=== PATIENT | female | born 1975 | race Native Hawaiian/Other Pacific Islander ===

== ENCOUNTER 2019-06-05 14:08 | Emergency (ER) | payer SELFPAY ==
[2019-06-05] MEDS ORDERED: HYDROcodone/ACETAMINOPHEN 5-325 MG TAB PO ONE (15:24)
--- NOTE | 2019-06-05 15:26 | Emergency Department Report ---
Chief Complaint: Abdominal Pain Stated Complaint: ABD PAIN Time Seen by Provider: 06/05/19 15:23 - HPI History of Present Illness: the pt is a 43 y/o F p/w a cc of left flank pain and LAP. Pt developed left back/flank pain 2 days ago and yd developed LAP bilat. No n/v, hematuria or dysuria. Pt uncertain if she's had a fever. Pt gives pain a score of 10/10 - Exam Vital Signs: Vital Signs 06/05/19 14:14 Temperature 98 F Pulse Rate 87 Respiratory 20 Rate Blood Pressure 105/57 O2 Sat by Pulse 97 Oximetry MSE screening note: Focused history and physical exam performed. Due to findings the following was ordered: cbc, cmp, u/a, upt, lipase ED Disposition for MSE Condition: Stable Instructions: Abdominal Pain (ED)
[2019-06-05 15:54] LABS: Basophils # (Auto) 0.1 K/mm3 (0.0-0.1); Basophils % (Auto) 0.5 % (0.0-1.8); Eosinophils # (Auto) 0.3 K/mm3 (0.0-0.4); Eosinophils % (Auto) 2.2 % (0.0-4.3); Hematocrit 42.3 % (30.3-42.9); Hemoglobin 14.2 gm/dl (10.1-14.3); Lymphocytes # (Auto) 3.4 K/mm3 (1.2-5.4); Lymphocytes % (Auto) 27.9 % (13.4-35.0); Mean Corpuscular HGB Conc 34 % (30-34); Mean Corpuscular Volume 90 fl (79-97); Monocytes # (Auto) 0.8 K/mm3 (0.0-0.8); Monocytes % (Auto) 6.8 % (0.0-7.3); Platelet Count 196 K/mm3 (140-440); Red Blood Count 4.71 M/mm3 (3.65-5.03); Red Cell Distribution Width 13.2 % (13.2-15.2)
[2019-06-05 16:18] LABS: Alanine Aminotransferase 13 units/L (7-56); Albumin 4.1 g/dL (3.9-5); BUN/Creatinine Ratio 20; Blood Urea Nitrogen 14 mg/dL (7-17); Calcium 9.4 mg/dL (8.4-10.2); Hemolysis Index 39
[2019-06-05 18:37] LABS: Bilirubin,Urine NEG (Negative); Blood,Urine NEG (Negative); Color,Urine Yellow (Yellow); HCG Qualitative,Urine Negative (Negative); Mucus,Urine FEW /HPF; Protein,Urine <15 mg/dL mg/dL (Negative); Urobilinogen,Urine < 2.0 mg/dL (<2.0)
--- NOTE | 2019-06-05 21:17 | Emergency Department Report ---
ED Abdominal Pain HPI - General Chief Complaint: Abdominal Pain Stated Complaint: ABD PAIN Time Seen by Provider: 06/05/19 15:23 Source: patient, family Mode of arrival: Ambulatory Limitations: Language Barrier - History of Present Illness Initial Comments: 43-year-old female with history of asthma presents with complaints of diffuse abdominal pain radiating to her flanks bilaterally, worse in the left flank area x 3 days. She denies any dysuria, hematuria, urinary frequency, nausea/vomiting, melena/hematochezia, or fever. She does admit to constipation since the onset of her symptoms on Thursday. Her surgical history includes 1 . She rates her pain as a 10/10 in severity. Patient reports pain has significantly improved with hydrocodone given here in the ED. -: Sudden Location: diffuse Severity scale (0 -10): 10 - Related Data Previous Rx's Medication Instructions Recorded Last Taken Type Acetaminophen/Codeine [Tylenol 1 tab PO Q6H PRN #10 tab 06/05/19 Unknown Rx /Codeine # 3 tab] Ciprofloxacin HCl [Ciprofloxacin 500 mg PO Q12HR 10 Days #20 tab 06/05/19 Unknown Rx TAB] metroNIDAZOLE [Flagyl TAB] 500 mg PO Q12HR 10 Days #30 tab 06/05/19 Unknown Rx Allergies Allergy/AdvReac Type Severity Reaction Status Date / Time No Known Allergies Allergy Unverified 06/05/19 14:11 ED Review of Systems ROS: Stated complaint: ABD PAIN Other details as noted in HPI Comment: All other systems reviewed and negative Gastrointestinal: abdominal pain, constipation Genitourinary: denies: discharge, dyspareunia ED Past Medical Hx - Past Medical History Previous Medical History?: Yes Hx Asthma: Yes - Surgical History Past Surgical History?: Yes Additional Surgical History: , Left arm, left axillary - Social History Smoking Status: Current Every Day Smoker Substance Use Type: None - Medications Home Medications: Home Medications Medication Instructions Recorded Confirmed Last Taken Type Acetaminophen/Codeine [Tylenol 1 tab PO Q6H PRN #10 tab 06/05/19 Unknown Rx /Codeine # 3 tab] Ciprofloxacin HCl [Ciprofloxacin 500 mg PO Q12HR 10 Days #20 tab 06/05/19 Unknown Rx TAB] metroNIDAZOLE [Flagyl TAB] 500 mg PO Q12HR 10 Days #30 tab 06/05/19 Unknown Rx ED Physical Exam - General Limitations: Language Barrier General appearance: alert, in no apparent distress - Head Head exam: Present: atraumatic, normocephalic - Eye Eye exam: Present: normal appearance. Absent: scleral icterus - ENT ENT exam: Present: mucous membranes moist - Neck Neck exam: Present: normal inspection - Respiratory Respiratory exam: Present: normal lung sounds bilaterally. Absent: respiratory distress - Cardiovascular Cardiovascular Exam: Present: regular rate, normal rhythm. Absent: systolic murmur, diastolic murmur, rubs, gallop - GI/Abdominal GI/Abdominal exam: Present: soft, tenderness (Generalized), normal bowel sounds. Absent: distended, guarding, rebound, rigid - Extremities Exam Extremities exam: Present: normal inspection - Back Exam Back exam: Present: normal inspection. Absent: CVA tenderness (R), CVA tenderness (L) - Neurological Exam Neurological exam: Present: alert - Psychiatric Psychiatric exam: Present: normal affect, normal mood - Skin Skin exam: Present: warm, dry, intact, normal color. Absent: rash ED Course Vital Signs 06/05/19 06/05/19 06/05/19 14:14 16:28 23:06 Temperature 98 F 98.0 F Pulse Rate 87 71 Respiratory 20 20 16 Rate Blood Pressure 105/57 Blood Pressure 111/70 [Right] O2 Sat by Pulse 97 98 Oximetry ED Medical Decision Making - Lab Data Result diagrams: 06/05/19 15:28 06/05/19 15:28 Lab Results 06/05/19 06/05/19 06/05/19 Range/Units 15:28 15:28 18:09 WBC 12.0 H (4.5-11.0) K/mm3 RBC 4.71 (3.65-5.03) M/mm3 Hgb 14.2 (10.1-14.3) gm/dl Hct 42.3 (30.3-42.9) % MCV 90 (79-97) fl MCH 30 (28-32) pg MCHC 34 (30-34) % RDW 13.2 (13.2-15.2) % Plt Count 196 (140-440) K/mm3 Lymph % (Auto) 27.9 (13.4-35.0) % Bee % (Auto) 6.8 (0.0-7.3) % Eos % (Auto) 2.2 (0.0-4.3) % Baso % (Auto) 0.5 (0.0-1.8) % Lymph # 3.4 (1.2-5.4) K/mm3 Bee # 0.8 (0.0-0.8) K/mm3 Eos # 0.3 (0.0-0.4) K/mm3 Baso # 0.1 (0.0-0.1) K/mm3 Seg Neutrophils % 62.6 (40.0-70.0) % Seg Neutrophils # 7.5 (1.8-7.7) K/mm3 Sodium 142 (137-145) mmol/L Potassium 3.9 (3.6-5.0) mmol/L Chloride 104.4 (98-107) mmol/L Carbon Dioxide 24 (22-30) mmol/L Anion Gap 18 mmol/L BUN 14 (7-17) mg/dL Creatinine 0.7 (0.7-1.2) mg/dL Estimated GFR > 60 ml/min BUN/Creatinine Ratio 20 % Glucose 90 (65-100) mg/dL Calcium 9.4 (8.4-10.2) mg/dL Total Bilirubin 0.20 (0.1-1.2) mg/dL AST 15 (5-40) units/L ALT 13 (7-56) units/L Alkaline Phosphatase 98 (35-129) units/L Total Protein 7.8 (6.3-8.2) g/dL Albumin 4.1 (3.9-5) g/dL Albumin/Globulin Ratio 1.1 % Lipase 42 (13-60) units/L Urine Color Yellow (Yellow) Urine Turbidity Slightly-cloudy (Clear) Urine pH 6.0 (5.0-7.0) Ur Specific Cuervo 1.023 (1.003-1.030) Urine Protein <15 mg/dl (Negative) mg/dL Urine Glucose (UA) Neg (Negative) mg/dL Urine Ketones Neg (Negative) mg/dL Urine Blood Neg (Negative) Urine Nitrite Neg (Negative) Urine Bilirubin Neg (Negative) Urine Urobilinogen < 2.0 (<2.0) mg/dL Ur Leukocyte Esterase Neg (Negative) Urine WBC (Auto) 2.0 (0.0-6.0) /HPF Urine RBC (Auto) 3.0 (0.0-6.0) /HPF U Epithel Cells (Auto) 8.0 (0-13.0) /HPF Urine Mucus Few /HPF Urine HCG, Qual Negative (Negative) - Radiology Data Radiology results: report reviewed Findings [facility] [address] [place] [address] Cat Scan Report Signed Patient: SHONDA CORREA MR#: [id number] : 1975 Acct:[id number] Age/Sex: 43 / F ADM Date: 06/05/19 Loc: ED Attending Dr: Ordering Physician: RICKEY BUSCH Date of Service: 06/05/19 Procedure(s): CT abdomen pelvis w con Accession Number(s): [id number] cc: RICKEY BUSCH CT abdomen pelvis w con INDICATION / CLINICAL INFORMATION: diffuse pain, worse in left abdomen and flank. TECHNIQUE: Axial CT imaging of abdomen and pelvis was obtained with IV contrast. Coronal and sagittal reformatted imaging obtained and reviewed. All CT scans at this location are performed using CT dose reduction for ALARA by means of automated exposure control. COMPARISON: None available. FINDINGS: CT abdomen with contrast demonstrates normal appearance of the liver, spleen, pancreas, kidneys, and adrenal glands. No gallbladder pathology visualized. No biliary dilatation. No hydronephrosis or renal mass. CT pelvis with contrast demonstrates right ovarian cyst measuring 3.3 cm. Trace free fluid seen in the right adnexa and posterior cul-de-sac. No left adnexal mass. Normal appendix is present. Several fluid-filled nondilated loops of small bowel throughout the abdomen and pelvis. With the appropriate clinical setting, this could be enteritis. The remainder of the GI tract is normal. Visualized lung bases are clear. No significant osseous abnormality. IMPRESSION: 1. Possible enteritis. Please correlate with clinical presentation. 2. 3.3 cm right ovarian cyst with trace amount of surrounding free fluid. - Medical Decision Making Patient presents with generalized abdominal pain radiating to bilaterally to her flanks for [address] abdomen shows enteritis. Patient denies any travel ou tside the country in the past 60 days. She also denies any hematochezia. CBC is normal and vitals are normal. She is nontoxic-appearing and pain is controlled. Patient is stable for discharge home and follow-up with gastroenterology. Prescriptions given for Cipro and Flagyl. Discussed strict r eturn precautions in great detail with patient and patient's who both state understanding. Critical care attestation.: If time is entered above; I have spent that time in minutes in the direct care of this critically ill patient, excluding procedure time. ED Disposition Clinical Impression: Enteritis Disposition: DC-01 TO HOME OR SELFCARE Is pt being admited?: No Condition: Stable Instructions: Infectious Colitis (ED) Prescriptions: Ciprofloxacin HCl [Ciprofloxacin TAB] 500 mg PO Q12HR 10 Days #20 tab metroNIDAZOLE [Flagyl TAB] 500 mg PO Q12HR 10 Days #30 tab Acetaminophen/Codeine [Tylenol /Codeine # 3 tab] 1 tab PO Q6H PRN #10 tab PRN Reason: Pain , Severe (7-10) Referrals: [facility] [Provider Group] - 2-3 Days
--- NOTE | 2019-06-05 22:40 | Cat Scan Report ---
CT abdomen pelvis w con INDICATION / CLINICAL INFORMATION: diffuse pain, worse in left abdomen and flank. TECHNIQUE: Axial CT imaging of abdomen and pelvis was obtained with IV contrast. Coronal and sagittal reformatte d imaging obtained and reviewed. All CT scans at this location are performed using CT dose reduction for ALARA by means of automated exposure control. COMPARISON: None available. FINDINGS: CT abdomen with contrast demonstrates normal appearance of the liver, spleen, pancreas, kidneys, and adrenal glands. No gallbladder pathology visualized. No biliary dilatation. No hydronephrosis or jackelyn l mass. CT pelvis with contrast demonstrates right ovarian cyst measuring 3.3 cm. Trace free fluid seen in th e right adnexa and posterior cul-de-sac. No left adnexal mass. Normal appendix is present. Several fl uid-filled nondilated loops of small bowel throughout the abdomen and pelvis. With the appropriate cl inical setting, this could be enteritis. The remainder of the GI tract is normal. Visualized lung bas es are clear. No significant osseous abnormality. IMPRESSION: 1. Possible enteritis. Please correlate with clinical presentation. 2. 3.3 cm right ovarian cyst with trace amount of surrounding free fluid. Signer Name: Rowena Francois MD Signed: 06/05/2019 10:36 PM Workstation Name: [id number]
[2019-06-05 23:07] VITALS: BP 111/70
== END 2019-06-05 23:18 | disposition home or self-care (01) ==
LOC: ED 14:08
DX: R10.84 Generalized abdominal pain (principal); J45.909 Unspecified asthma, uncomplicated; F17.200 Nicotine dependence, unspecified, uncomplicated; Z98.890 Other specified postprocedural states
CPT/HCPCS: 36415; 74177; 80053; 81001; 81025; 83690; 85025; 99284; Q9967